=== PATIENT | female | born 1940 | race American Indian/Alaskan Native ===

== ENCOUNTER 2018-10-20 16:34 | Emergency (ER) | payer OTHER ==
[~2018-10-20] VITALS: Ht 147.3 cm; Wt 59.0 kg
[~2018-10-20 16:34] MED LIST: ALBUTEROL S5 MG/1 ML; FLOVENT 110MCG7.9 GM IH; PEPCID20 MG; PNEU16DI2; PROVENTIL3 ML/2.5 M IH; PULMICORT1 MG/2 ML; ROBITUSSIN NIG118 ML; SINGULAIR10 MG PO; TIMOLOL MALEATE5 M1
[2018-10-20] MEDS ORDERED: SYMBICORT 16010.2 GM (16:42)
== END 2018-10-20 18:10 | disposition home or self-care (01) ==
LOC: ER 16:34
DX: R06.02 Shortness of breath (principal)

== ENCOUNTER 2019-01-28 10:18 | Outpatient (CLI) | payer OTHER ==
[~2019-01-28 10:18] MED LIST changes: +SYMBICORT 16010.2 GM
== END 2019-02-07 13:52 | disposition home or self-care (01) ==
LOC: RAD 10:18
DX: K22.0 Achalasia of cardia (principal); R13.10 Dysphagia, unspecified; K21.9 Gastro-esophageal reflux disease without esophagitis

== ENCOUNTER 2019-09-26 07:55 | Day surgery (SDC) | payer OTHER ==
[~2019-09-26 07:55] MED LIST changes: +ALPHAGAN P5 M2 OP; +ATROVENT; +NEXIUM40 M1 PO; +SYMBICORT 16010.2 GM IH
[2019-10-15] MEDS ORDERED: ADVIL (06:19)
== END 2019-09-26 11:30 | disposition home or self-care (01) ==
LOC: CIR.AMB 07:55
DX: M47.897 Other spondylosis, lumbosacral region (principal); M47.898 Other spondylosis, sacral and sacrococcygeal region

== ENCOUNTER → 2019-10-15 | Emergency (ER) | payer OTHER ==
[~2019-10-15] VITALS: Ht 152.4 cm; Wt 59.0 kg
[~2019-10-15] MED LIST changes: +ADVIL
== END | disposition home or self-care (01) ==
LOC: ER 06:07
DX: M54.5 Low back pain (principal)

== ENCOUNTER 2020-04-05 07:54 | Emergency (ER) | payer OTHER ==
[~2020-04-05] VITALS: Ht 149.9 cm; Wt 59.9 kg
== END 2020-04-05 10:10 | disposition home or self-care (01) ==
LOC: ER 07:54
DX: S50.862A Insect bite (nonvenomous) of left forearm, initial encounter (principal); S50.861A Insect bite (nonvenomous) of right forearm, initial encounter; W57.XXXA Bitten or stung by nonvenomous insect and other nonvenomous arthropods, initial encounter; Y93.89 Activity, other specified; Y92.89 Other specified places as the place of occurrence of the external cause; Y99.8 Other external cause status

== ENCOUNTER 2020-11-01 09:35 | Outpatient (CLI) | payer OTHER | END 2020-11-01 14:03 | disposition home or self-care (01) | LOC: MRI 09:35 | PROVIDERS: ATTEND Orthopaedic Surgery | DX: M17.11 Unilateral primary osteoarthritis, right knee (principal); M25.762 Osteophyte, left knee; M25.561 Pain in right knee; M25.562 Pain in left knee ==

== ENCOUNTER 2021-04-04 10:22 | Outpatient (CLI) | payer OTHER | END 2021-04-04 10:47 | disposition home or self-care (01) | LOC: MRI 10:22 | PROVIDERS: ATTEND Orthopaedic Surgery | DX: M25.561 Pain in right knee (principal); M25.562 Pain in left knee | CPT/HCPCS: 73721 ==

== ENCOUNTER 2021-10-25 08:00 | Outpatient (CLI) | payer OTHER | END 2021-10-25 08:30 | disposition home or self-care (01) | LOC: PPH VACUNA 08:00 | PROVIDERS: ATTEND Emergency Medicine Pediatric Emergency Medicine | DX: Z23 Encounter for immunization (principal) ==

== ENCOUNTER 2022-12-22 09:33 | Outpatient (CLI) | payer OTHER | END 2022-12-22 10:07 | disposition home or self-care (01) | LOC: MRI 09:33 | PROVIDERS: ATTEND Family Medicine | DX: S83.207S Unspecified tear of unspecified meniscus, current injury, left knee, sequela (principal) | CPT/HCPCS: 72148 ==